=== PATIENT | male | born 1960 | race Caucasian/White ===

== ENCOUNTER 2021-01-09 11:38 | Emergency (ER) | payer OTHER, SELFPAY ==
[2021-01-09] VITALS (14 sets, daily range): BP systolic 94–174; BP diastolic 58–88; PULSE 44–83; RESP 18–23; TEMP 32.4–33; O2SAT 97–100; BMI 33.5
--- NOTE | ~2021-01-09 | CT_ITS ---
EXAMINATION: CT HEAD WITHOUT CONTRAST CLINICAL INFORMATION: Unresponsive after cardiac arrest COMPARISON: None. TECHNIQUE: Contiguous axial imaging was performed from the skull base to vertex without intravenous contrast. This CT examination was performed using dose optimization techniques as appropriate, variously including the following: * Automated exposure control * Adjustment of mA and/or kV according to patient size (this includes techniques or standardized protocols for targeted exams where dose is matched to indication/reason for exam; i.e. extremities or head) Use of iterative reconstruction technique DLP: 669 mGy-cm. FINDINGS: There is no evidence of acute intracranial hemorrhage or territorial infarction. No abnormal mass effect or midline shift is seen. Ruiz to white matter differentiation is well preserved. No extra-axial fluid collections are identified. No hydrocephalus. Proportional prominence of the ventricles and sulcal spaces is consistent with mild volume loss. Patchy periventricular and deep white matter hypoattenuation is consistent with mild small vessel ischemic changes. The osseous structures and soft tissues are normal. There is near complete opacification of the right maxillary sinus. Air-fluid level in the right sphenoid sinus. Moderate opacification of the right ethmoid air cells. The mastoid air cells are well aerated. CT/CT head/brain wo con IMPRESSION: No acute intracranial pathology. Mild volume loss with small vessel ischemic change. Paranasal sinus opacification.
--- NOTE | ~2021-01-09 | XR_ITS ---
EXAMINATION: XR CHEST CLINICAL INFORMATION: Status post intubation. COMPARISON: None TECHNIQUE: Frontal view of the chest was obtained. FINDINGS: Endotracheal tube with its tip approximately 0.6 cm proximal to the thomas and directed toward the right mainstem bronchus. Retraction of approximately 3 cm is recommended. Enterogastric tube with its tip in the region of the distal esophagus. The distal aspect of the tube is not well visualized. Right-sided central venous catheter with its tip at the level of the cavoatrial junction. Hypoinflation of the lungs. Left upper lobe/left perihilar airspace opacities. No pleural effusion or pneumothorax. XR/XR chest 1V IMPRESSION: 1. Endotracheal tube with its tip approximately 0.6 cm proximal to the thomas and directed toward the right mainstem bronchus. Retraction of approximately 3 cm is recommended. 2. Enterogastric tube with its tip appearing to be in the region of the distal esophagus and not well visualized. 3. Right-sided central venous catheter in appropriate position. 4. Left upper lobe/left perihilar airspace opacities. No pleural effusion or pneumothorax. This critical result was discussed with Dr. Chaparro at 12:49 PM on 01/09/2021 and it was ascertained that the content and urgency of the report was understood at the time of direct communication.
--- NOTE | ~2021-01-09 | XR_ITS ---
EXAMINATION: XR CHEST CLINICAL INFORMATION: Intubation and central line COMPARISON: 01/09/2021 TECHNIQUE: Frontal view of the chest was obtained. FINDINGS: The endotracheal tube now terminates approximately 1.5 cm above the thomas. This is retracted from prior. Enteric tube terminates over the lower esophagus. Right internal jugular central venous catheter terminates over the lower SVC. Cardiac leads overlie the chest. Lung volumes are low. There is minimal left perihilar opacity again noted. No pleural effusion or pneumothorax. The cardiomediastinal silhouette is unchanged. XR/XR chest 1V IMPRESSION: Endotracheal tube retracted from prior, now terminating 1.5 cm above the thomas. This is near the region of the clavicles and this measurement is likely partially due to positioning of the patient. This may be satisfactory positioning. Continued follow-up. Persistent left perihilar airspace opacity.
[2021-01-09 11:51] LABS: Glucose, Whole Blood 88 mg/dL (60-115)
--- NOTE | 2021-01-09 12:28 | ED_ITS ---
HPI - CPR General Chief Complaint: Cardiac Arrest/CPR Stated Complaint: code Time Seen by Provider: 01/09/21 12:28 Source: EMS Mode of arrival: EMS Limitations: other (unresponsiv) History of Present Illness HPI narrative: patient was with family, went to family room found unresponsive 1 hour later. CPR started, ACLS by EMS, patient received epi, achieved ROSC started on peripheral nor epi. LMA Jacob placed. Patient had runs of vfib with cardioversion complaint: found unresponsive Onset (ago): minute(s) Place: home Bystander CPR performed: Yes Number of shocks delivered: 2 Initial findings in the field: unresponsive, no respirations, no pulse and other rhythm (flat line) ROSC in the field: Yes Associated injuries: No Related Data Allergies Allergy/AdvReac Type Severity Reaction Status Date / Time No Known Allergies Allergy Verified 01/09/21 12:28 Review of Systems Review of Systems: Yes Unobtainable due to mental condition and Unobtainable d ue to mental status PMFSH Past Medical History Medical History Diabetes EtOH dependence HTN (hypertension) with goal to be determined Social History Social History Advance Directives: No Physical Exam Vital Signs: Vital Signs: Last Vital Signs Temp 90.3 F L 01/09/21 15:18 Pulse 64 01/09/21 15:18 Resp 22 H 01/09/21 15:18 BP 128/69 01/09/21 15:18 Pulse Ox 99 01/09/21 15:18 Body Mass Index 33.5 Const: Other: chronically ill appearing, jacob LMA Nutritional Appearance: average body habitus HENMT: Other: coffee grounds in mouth and airway Head: Yes normal to inspection Ears: external ears normal General nose exam: Normal external nose present Throat: Yes posterior oropharynx normal Eyes: Other: fixed and dilated Neck: Other: supple Neck: Yes normal visual inspection Chest: Chest palpation & inspection: normal inspection of the chest Resp: Other: rhonchi bilaterally Cardio: Jugular venous distension: no JVD Rate: regular rate Rhythm: regular rhythm Heart sounds: S1 normal heart sound present and S2 normal heart sound present GI: Inspection: Yes normal to inspection Palpation (GI): Soft to palpation Auscultation: normal bowel sounds : Other: normal penis and testicles Skin: Other: cyanotic extremities Neuro: Other: unresponsive to painful stimuli Extrem: General: Yes normal to inspection Psych: Appearance: grossly normal Course Course Course Narrative: Proper hand hygiene, cap, gown and sterile gloves place worn. Patient prepped and draped in sterile fashion, 1% lidocaine used for anesthesia, sterile US cover used, central line placed using US. Central line 16cm at the neck. Sutured in place Reevaluation(s) Reevaluation #1: Patient intubated with under direct visualization, 8.0 ETT used, 24 at the lips, good capnometery. Good O2 saturations, CXR shows tube in good position. Reevaluation #2: Nasogastric tube in place, coffee grounds removed Reevaluation #3: I spent 150 minutes of critical care, with interventions, assessments, speaking to consultants, and family. MDM - Cardiac Arrest/CPR MDM Narrative Medical decision making narrative: impression with the cardiac arrest, h ypothermia, WBC, elevated Lactic, infiltrates on CXR, renal failure, hyperkalemia Lab Data Result diagrams: 01/09/21 13:17 01/09/21 13:17 Labs: Lab Results 01/09/21 01/09/21 01/09/21 Range/Units 11:48 13:17 13:17 WBC 43.0 H* (4.8-10.8) X10*3/uL RBC 2.85 L (4.60-5.80) X10*6/uL Hgb 8.5 L (14.0-18.0) g/dl Hct 32.4 L (42-52) % MCV 113.7 H (80-98) fL MCH 29.8 (27.0-33.0) pg MCHC 26.2 L (31.0-36.0) g/dl RDW 15.9 (11.0-16.0) % Plt Count 257 (160-400) X10*3/uL MPV 11.8 (9.4-12.4) fL Immature Gran % (Auto) Cancelled Neut % (Auto) Cancelled Lymph % (Auto) Cancelled [place] % (Auto) Cancelled Eos % (Auto) Cancelled Baso % (Auto) Cancelled Lymph # (Auto) Cancelled [place] # (Auto) Cancelled Eos # (Auto) Cancelled Baso # (Auto) Cancelled Abs Immat Gran (auto) Cancelled Absolute Neuts (auto) Cancelled Absolute Nucleated RBC 0.310 H (0.0-0.012) X10*3/uL Nucleated RBC % (auto) 0.7 H (0.0-0.2) /100WBC Neutrophils % (Manual) 58 (45-73) % Band Neutrophils % 21 H (3-5) % Lymphocytes % (Manual) 3 L (20-40) % Atypical Lymphs % (Man) 1 (0-6) % Monocytes % (Manual) 5 (2-11) % Eosinophils % (Manual) 2 (0-4) % Metamyelocytes % 7 % Myelocytes % 1 % Promyelocytes % 2 % Abs Neuts (Manual) 34.0 H (2.2-7.9) X10*3/uL Lymphocytes # (Manual) 1.3 (0.6-4.8) X10*3/uL Atyp Lymphs # (Manual) 0.4 x10*3/uL Monocytes # (Manual) 2.2 H (0.0-1.2) X10*3/uL Eosinophils # (Manual) 0.9 H (0.0-0.8) X10*3/UL Metamyelocytes # 3.0 X10*3/uL Myelocytes # 0.4 X10*/uL Promyelocytes # 0.9 X10*3/uL Nucleated RBCs 1 H (0-0) /100WBC Toxic Granulation PRESENT Toxic Vacuolation PRESENT Platelet Estimate NORMAL (NORMAL) Plt Morphology Comment L RBC Morphology NOTED Polychromasia 1+ (0-2) /OIF Macrocytosis 2+ (15-30) /OIF Anton Cells 2+ (3-5) /OIF Acanthocytes (Spur) 1+ (0-2) /OIF Schistocytes 1+ (0-2) /OIF VBG pH (7.32-7.43) VBG pCO2 mmHg VBG pO2 mmHg VBG HCO3 (22-26) mmol/L VBG O2 Saturation % VBG Base Excess mmol/L Sodium 133 L (135-145) mmol/L Potassium 8.4 H* (3.3-5.1) mmol/L Chloride 95 L (96-108) mmol/L Carbon Dioxide < 5 L* (22-29) mmol/L Anion Gap 41 H (12-20) BUN 94 H* (9-16) mg/dL Creatinine 7.67 H* (0.5-1.4) mg/dL Estim Creat Clear Calc 12.0 Estimated GFR 7 POC Glucose 88 (60-115) mg/dL Random Glucose 54 L* (60-115) mg/dL Lactic Acid (0.5-2.0) mmol/L Calcium 8.1 L (8.4-10.2) mg/dL Total Bilirubin 7.7 H (0.0-1.0) mg/dL Direct Bilirubin 5.9 H (0.0-0.5) mg/dL AST 506 H (5-37) U/L ALT 250 H (0-40) U/L Alkaline Phosphatase 476 H (39-117) U/L Troponin I High Sens (<3.5-35.0) ng/L Total Protein 6.3 L (6.5-8.0) g/dL Albumin 2.2 L (3.5-5.0) g/dL Lipase (8-78) U/L Urine Opiates Screen (Not Detect) Ur Barbiturates Screen (Not Detect) Ur Phencyclidine Scrn (Not Detect) Ur Amphetamines Screen (Not Detect) U Benzodiazepines Scrn (Not Detect) Urine Cocaine Screen (Not Detect) U Marijuana (THC) Screen (Not Detect) Coronavirus (PCR) (Negative) Influenza Type A (PCR) (Negative) Influenza Type B (PCR) (Negative) RSV RNA Qual (PCR) (Negative) 01/09/21 01/09/21 01/09/21 Range/Units 13:17 13:17 13:17 WBC (4.8-10.8) X10*3/uL RBC (4.60-5.80) X10*6/uL Hgb (14.0-18.0) g/dl Hct (42-52) % MCV (80-98) fL MCH (27.0-33.0) pg MCHC (31.0-36.0) g/dl RDW (11.0-16.0) % Plt Count (160-400) X10*3/uL MPV (9.4-12.4) fL Immature Gran % (Auto) Neut % (Auto) Lymph % (Auto) [place] % (Auto) Eos % (Auto) Baso % (Auto) Lymph # (Auto) [place] # (Auto) Eos # (Auto) Baso # (Auto) Abs Immat Gran (auto) Absolute Neuts (auto) Absolute Nucleated RBC (0.0-0.012) X10*3/uL Nucleated RBC % (auto) (0.0-0.2) /100WBC Neutrophils % (Manual) (45-73) % Band Neutrophils % (3-5) % Lymphocytes % (Manual) (20-40) % Atypical Lymphs % (Man) (0-6) % Monocytes % (Manual) (2-11) % Eosinophils % (Manual) (0-4) % Metamyelocytes % % Myelocytes % % Promyelocytes % % Abs Neuts (Manual) (2.2-7.9) X10*3/uL Lymphocytes # (Manual) (0.6-4.8) X10*3/uL Atyp Lymphs # (Manual) x10*3/uL Monocytes # (Manual) (0.0-1.2) X10*3/uL Eosinophils # (Manual) (0.0-0.8) X10*3/UL Metamyelocytes # X10*3/uL Myelocytes # X10*/uL Promyelocytes # X10*3/uL Nucleated RBCs (0-0) /100WBC Toxic Granulation Toxic Vacuolation Platelet Estimate (NORMAL) Plt Morphology Comment RBC Morphology Polychromasia /OIF Macrocytosis /OIF Anton Cells /OIF Acanthocytes (Spur) /OIF Schistocytes /OIF VBG pH (7.32-7.43) VBG pCO2 mmHg VBG pO2 mmHg VBG HCO3 (22-26) mmol/L VBG O2 Saturation % VBG Base Excess mmol/L Sodium (135-145) mmol/L Potassium (3.3-5.1) mmol/L Chloride (96-108) mmol/L Carbon Dioxide (22-29) mmol/L Anion Gap (12-20) BUN (9-16) mg/dL Creatinine (0.5-1.4) mg/dL Estim Creat Clear Calc Estimated GFR POC Glucose (60-115) mg/dL Random Glucose (60-115) mg/dL Lactic Acid (0.5-2.0) mmol/L Calcium (8.4-10.2) mg/dL Total Bilirubin (0.0-1.0) mg/dL Direct Bilirubin (0.0-0.5) mg/dL AST (5-37) U/L ALT (0-40) U/L Alkaline Phosphatase (39-117) U/L Troponin I High Sens 7.0 (<3.5-35.0) ng/L Total Protein (6.5-8.0) g/dL Albumin (3.5-5.0) g/dL Lipase 315 H (8-78) U/L Urine Opiates Screen (Not Detect) Ur Barbiturates Screen (Not Detect) Ur Phencyclidine Scrn (Not Detect) Ur Amphetamines Screen (Not Detect) U Benzodiazepines Scrn (Not Detect) Urine Cocaine Screen (Not Detect) U Marijuana (THC) Screen (Not Detect) Coronavirus (PCR) NEGATIVE (Negative) Influenza Type A (PCR) NEGATIVE (Negative) Influenza Type B (PCR) NEGATIVE (Negative) RSV RNA Qual (PCR) NEGATIVE (Negative) 01/09/21 01/09/21 01/09/21 Range/Units 13:17 13:17 13:25 WBC (4.8-10.8) X10*3/uL RBC (4.60-5.80) X10*6/uL Hgb (14.0-18.0) g/dl Hct (42-52) % MCV (80-98) fL MCH (27.0-33.0) pg MCHC (31.0-36.0) g/dl RDW (11.0-16.0) % Plt Count (160-400) X10*3/uL MPV (9.4-12.4) fL Immature Gran % (Auto) Neut % (Auto) Lymph % (Auto) [place] % (Auto) Eos % (Auto) Baso % (Auto) Lymph # (Auto) [place] # (Auto) Eos # (Auto) Baso # (Auto) Abs Immat Gran (auto) Absolute Neuts (auto) Absolute Nucleated RBC (0.0-0.012) X10*3/uL Nucleated RBC % (auto) (0.0-0.2) /100WBC Neutrophils % (Manual) (45-73) % Band Neutrophils % (3-5) % Lymphocytes % (Manual) (20-40) % Atypical Lymphs % (Man) (0-6) % Monocytes % (Manual) (2-11) % Eosinophils % (Manual) (0-4) % Metamyelocytes % % Myelocytes % % Promyelocytes % % Abs Neuts (Manual) (2.2-7.9) X10*3/uL Lymphocytes # (Manual) (0.6-4.8) X10*3/uL Atyp Lymphs # (Manual) x10*3/uL Monocytes # (Manual) (0.0-1.2) X10*3/uL Eosinophils # (Manual) (0.0-0.8) X10*3/UL Metamyelocytes # X10*3/uL Myelocytes # X10*/uL Promyelocytes # X10*3/uL Nucleated RBCs (0-0) /100WBC Toxic Granulation Toxic Vacuolation Platelet Estimate (NORMAL) Plt Morphology Comment RBC Morphology Polychromasia /OIF Macrocytosis /OIF [place] Cells /OIF Acanthocytes (Spur) /OIF Schistocytes /OIF VBG pH 6.53 L* (7.32-7.43) VBG pCO2 24 mmHg VBG pO2 169 mmHg VBG HCO3 2 L (22-26) mmol/L VBG O2 Saturation 93.0 % VBG Base Excess -35.7 mmol/L Sodium (135-145) mmol/L Potassium (3.3-5.1) mmol/L Chloride (96-108) mmol/L Carbon Dioxide (22-29) mmol/L Anion Gap (12-20) BUN (9-16) mg/dL Creatinine (0.5-1.4) mg/dL Estim Creat Clear Calc Estimated GFR POC Glucose (60-115) mg/dL Random Glucose (60-115) mg/dL Lactic Acid 26.3 H* (0.5-2.0) mmol/L Calcium (8.4-10.2) mg/dL Total Bilirubin (0.0-1.0) mg/dL Direct Bilirubin (0.0-0.5) mg/dL AST (5-37) U/L ALT (0-40) U/L Alkaline Phosphatase (39-117) U/L Troponin I High Sens (<3.5-35.0) ng/L Total Protein (6.5-8.0) g/dL Albumin (3.5-5.0) g/dL Lipase (8-78) U/L Urine Opiates Screen Not Detected (Not Detect) Ur Barbiturates Screen Not Detected (Not Detect) Ur Phencyclidine Scrn Not Detected (Not Detect) Ur Amphetamines Screen Not Detected (Not Detect) U Benzodiazepines Scrn Not Detected (Not Detect) Urine Cocaine Screen Not Detected (Not Detect) U Marijuana (THC) Screen Not Detected (Not Detect) Coronavirus (PCR) (Negative) Influenza Type A (PCR) (Negative) Influenza Type B (PCR) (Negative) RSV RNA Qual (PCR) (Negative) 01/09/21 Range/Units 14:56 WBC (4.8-10.8) X10*3/uL RBC (4.60-5.80) X10*6/uL Hgb (14.0-18.0) g/dl Hct (42-52) % MCV (80-98) fL MCH (27.0-33.0) pg MCHC (31.0-36.0) g/dl RDW (11.0-16.0) % Plt Count (160-400) X10*3/uL MPV (9.4-12.4) fL Immature Gran % (Auto) Neut % (Auto) Lymph % (Auto) [place] % (Auto) Eos % (Auto) Baso % (Auto) Lymph # (Auto) [place] # (Auto) Eos # (Auto) Baso # (Auto) Abs Immat Gran (auto) Absolute Neuts (auto) Absolute Nucleated RBC (0.0-0.012) X10*3/uL Nucleated RBC % (auto) (0.0-0.2) /100WBC Neutrophils % (Manual) (45-73) % Band Neutrophils % (3-5) % Lymphocytes % (Manual) (20-40) % Atypical Lymphs % (Man) (0-6) % Monocytes % (Manual) (2-11) % Eosinophils % (Manual) (0-4) % Metamyelocytes % % Myelocytes % % Promyelocytes % % Abs Neuts (Manual) (2.2-7.9) X10*3/uL Lymphocytes # (Manual) (0.6-4.8) X10*3/uL Atyp Lymphs # (Manual) x10*3/uL Monocytes # (Manual) (0.0-1.2) X10*3/uL Eosinophils # (Manual) (0.0-0.8) X10*3/UL Metamyelocytes # X10*3/uL Myelocytes # X10*/uL Promyelocytes # X10*3/uL Nucleated RBCs (0-0) /100WBC Toxic Granulation Toxic Vacuolation Platelet Estimate (NORMAL) Plt Morphology Comment RBC Morphology Polychromasia /OIF Macrocytosis /OIF Anton Cells /OIF Acanthocytes (Spur) /OIF Schistocytes /OIF VBG pH (7.32-7.43) VBG pCO2 mmHg VBG pO2 mmHg VBG HCO3 (22-26) mmol/L VBG O2 Saturation % VBG Base Excess mmol/L Sodium (135-145) mmol/L Potassium (3.3-5.1) mmol/L Chloride (96-108) mmol/L Carbon Dioxide (22-29) mmol/L Anion Gap (12-20) BUN (9-16) mg/dL Creatinine (0.5-1.4) mg/dL Estim Creat Clear Calc Estimated GFR POC Glucose 115 (60-115) mg/dL Random Glucose (60-115) mg/dL Lactic Acid (0.5-2.0) mmol/L Calcium (8.4-10.2) mg/dL Total Bilirubin (0.0-1.0) mg/dL Direct Bilirubin (0.0-0.5) mg/dL AST (5-37) U/L ALT (0-40) U/L Alkaline Phosphatase (39-117) U/L Troponin I High Sens (<3.5-35.0) ng/L Total Protein (6.5-8.0) g/dL Albumin (3.5-5.0) g/dL Lipase (8-78) U/L Urine Opiates Screen (Not Detect) Ur Barbiturates Screen (Not Detect) Ur Phencyclidine Scrn (Not Detect) Ur Amphetamines Screen (Not Detect) U Benzodiazepines Scrn (Not Detect) Urine Cocaine Screen (Not Detect) U Marijuana (THC) Screen (Not Detect) Coronavirus (PCR) (Negative) Influenza Type A (PCR) (Negative) Influenza Type B (PCR) (Negative) RSV RNA Qual (PCR) (Negative) Imaging Data Chest x-ray: Radiologist's impression: central line, and NGT in good position, ETT too deep Critical Care Time Critical Care Time Attestation: 150 minutes of critical care time Discharge Plan Discharge Clinical Impression: Cardiac arrest Acute respiratory failure Qualifiers: Respiratory failure complication: unspecified whether with hypoxia or hyper capnia Qualified Code(s): J96.00 - Acute respiratory failure, unspecified whe ther with hypoxia or hypercapnia Sepsis Qualifiers: Sepsis type: sepsis due to unspecified organism Sepsis acute organ dysfunction status: with acute organ dysfunction Severe sepsis acute organ dysfunction type: acute renal failure Acute renal failure type: unspecified Severe sepsis shock status: without septic shock Qualified Code(s): A41.9 - Sepsis, unspecified organism Pneumonia Qualifiers: Pneumonia type: due to unspecified organism Laterality: bilateral Lung location: upper lobe of lung Qualified Code(s): J18.9 - Pneumonia, unspecified organism Renal failure Qualifiers: Renal failure chronicity: acute Acute renal failure type: unspecified Qualified Code(s): N17.9 - Acute kidney failure, unspecified Patient Disposition: [facility] Transfer Details: intubated, sepsis, renal failure
--- NOTE | 2021-01-09 12:28 | ECG_ITS ---
Test Reason : 911 Blood Pressure : / mmHG Vent. Rate : 069 BPM Atrial Rate : 052 BPM P-R Int : 000 ms QRS Dur : 158 ms QT Int : 480 ms P-R-T Axes : 000 -36 093 degrees QTc Int : 514 ms Atrial fibrillation with premature ventricular or aberrantly conducted complexes Left axis deviation Left bundle branch block Abnormal ECG No previous ECGs available Referred By: Lang Chaparro Electronically Signed By:NORA CASEY MD
--- NOTE | 2021-01-09 13:05 | PC.NURSE ---
genoveva conner applied for core temp 91.4
[2021-01-09 13:29] LABS: Hematocrit 32.4 % (42-52); Hemoglobin 8.5 g/dl (14.0-18.0); Mean Corpuscular HGB Conc 26.2 g/dl (31.0-36.0); Mean Corpuscular Hemoglobin 29.8 pg (27.0-33.0); Mean Platelet Volume 11.8 fL (9.4-12.4); NRBC Pct Auto 0.7 /100WBC (0.0-0.2); Platelet Count 257 X10*3/uL (160-400); Red Blood Count 2.85 X10*6/uL (4.60-5.80); Red Cell Distribution Width 15.9 % (11.0-16.0)
[2021-01-09 13:31] LABS: Mean Corpuscular Volume 113.7 fL (80-98); WBC ABN SCTR FOR CBC 1
[2021-01-09 13:38] LABS: VBG Base Excess -35.7 mmol/L; VBG HCO3 2 mmol/L (22-26); VBG pCO2 24 mmHg; VBG pH 6.53 (7.32-7.43); VBG pO2 169 mmHg
[2021-01-09 13:39] LABS: Venous Blood Gas Refer to POC result
[2021-01-09] MEDS: Atropine Sulfate 1 MG/10 ML SYRINGE IVPUSH (13:45)
--- NOTE | 2021-01-09 13:51 | PC.NURSE ---
HR drops to 40's with irreg rythm during ct. md aware and verbal order for atropine one amp. still remains sedate, only palpable pulse is femoral which has been the case since intubation. family was at bedside p/t ct and stating that patient is daily drinker as well as may have had drug use. was living with sister where drugs are accessable. still very little urine output.
[2021-01-09 13:53] LABS: Atypical Lymph Absolute Manual 0.4 x10*3/uL; Atypical Lymphs Percent Manual 1 % (0-6); Band Neutrophils Percent 21 % (3-5); Eosinophils Absolute Manual 0.9 X10*3/UL (0.0-0.8); Eosinophils Percent Manual 2 % (0-4); Lymphocytes Absolute Manual 1.3 X10*3/uL (0.6-4.8); Lymphocytes Percent Manual 3 % (20-40); Metamyelocytes Percent 7 %; Monocytes Absolute Manual 2.2 X10*3/uL (0.0-1.2); Monocytes Percent Manual 5 % (2-11); Myelocytes Absolute 0.4 X10*/uL; Myelocytes Percent 1 %; Neutrophils Percent Manual 58 % (45-73); Nucleated Red Blood Cells 1 /100WBC (0-0); Platelet Estimate NORMAL (NORMAL); Promyelocytes Absolute 0.9 X10*3/uL; Promyelocytes Percent 2 %
[2021-01-09] MEDS: 0.9 % Sodium Chloride 3,000 ML 3000 ML IVCONT (13:53)
[2021-01-09 13:54] LABS: Macrocytosis 2+ (15-30) /OIF; Platelet Morphology Comment L; RBC Morphology NOTED; Toxic Granulation PRESENT; Toxic Vacuolation PRESENT
[2021-01-09 14:00] LABS: Acanthocytes 1+ (0-2) /OIF; Burr Cells 2+ (3-5) /OIF; Polychromasia 1+ (0-2) /OIF; Schistocytes 1+ (0-2) /OIF
[2021-01-09] MEDS: cefTRIAXone sodium 2 GM in 0.9 % Sodium Chloride 50 ML IV (14:00)
[2021-01-09 14:07] LABS: Amphetamine Screen Urine Not Detected (Not Detect); Barbiturates, Urine Not Detected (Not Detect); Benzodiazepines Screen Urine Not Detected (Not Detect); Cannabinoid Screen Urine Not Detected (Not Detect); Cocaine Screen Urine Not Detected (Not Detect); Opiate Screen Urine Not Detected (Not Detect); Phencyclidine Screen Urine Not Detected (Not Detect)
[2021-01-09 14:09] LABS: Influenza A PCR NEGATIVE (Negative); Influenza B PCR NEGATIVE (Negative); Lipase 315 U/L (8-78); Resp Syncy Virus RNA Qual PCR NEGATIVE (Negative); SARS COV2 PCR INHOUSE NEGATIVE (Negative)
[2021-01-09 14:15] LABS: Lactic Acid 26.3 mmol/L (0.5-2.0)
[2021-01-09 14:17] LABS: Potassium 8.4 mmol/L (3.3-5.1)
[2021-01-09 14:18] LABS: Alanine Aminotransferase 250 U/L (0-40); Albumin Level 2.2 g/dL (3.5-5.0); Alkaline Phosphatase 476 U/L (39-117); Anion Gap 41 (12-20); Aspartate Amino Transferase 506 U/L (5-37); Bilirubin Direct 5.9 mg/dL (0.0-0.5); Bilirubin Total 7.7 mg/dL (0.0-1.0); Blood Urea Nitrogen 94 mg/dL (9-16); Calcium 8.1 mg/dL (8.4-10.2); Carbon Dioxide < 5 mmol/L (22-29); Chloride 95 mmol/L (96-108); Estimated Glomerular Filt Rate 7; Glucose Random 54 mg/dL (60-115); Sodium 133 mmol/L (135-145); Total Protein 6.3 g/dL (6.5-8.0)
[2021-01-09] MEDS: Calcium Chloride 1 GM/10 ML SYRINGE IVPUSH (14:23)
[2021-01-09] MEDS: Sodium Bicarbonate 8.4% 50 MEQ/50 ML VIAL IVPUSH (14:24)
[2021-01-09] MEDS: Insulin Regular, Human 100 UNIT/ML 3 ML VIAL 10 UNIT IVPUSH (14:28)
[2021-01-09] MEDS: Azithromycin 500 MG in 0.9 % Sodium Chloride 250 ML 125 MG IV (14:32)
[2021-01-09] MEDS: Sodium Polystyrene Sulfon/Sorb 15 GM/60 ML ORAL.SUSP 30 GM NG-TUBE (14:33)
--- NOTE | 2021-01-09 14:44 | PC.NURSE ---
pt continues to be completely sedate, no need for chemical sedation. now was wide but regular rhythm on monitor. norepi running at 0.5mvg/kg/min, abx and fluids infusing. no urine output since initial sml amount sent to lab for u/a. plan is to transfer to [facility]. physician is yet to give doc to doc
--- NOTE | 2021-01-09 14:46 | PC.NURSE ---
@ 4901 RETURN CALL FROM LINSEY FROM [facility] PT TX LINE ASKING TO SPEAK WITH DR TERRI MURRAY TAKES OVER CALL RIGHT AWAY
--- NOTE | 2021-01-09 14:49 | PC.NURSE ---
late entry. at arrival pt had no periferal pulses but wide irreg rhythm in 60's. ultrasound at bedside confirmed cardiac activity. femoral pulses palpable. intubation and central line insertion uncomplicated though tarry GI contents noted initially then scan amount in OG tube. md though that patient responded to central line insertion and og insertion but has not needed any sedation throughout time in ed. family at bedside states that patient is daily drinker. poor hygiene and signs of cronic poor peripheral perfusion as well as wounds on left foot at arrival. pt cool to touch. difficult to obtain sao2 untill after intubation and forhead prob used. blanket warmer isn't resulting in any increased core temp since it's use. family is aware of pt condition. MD continues to try to establish transfer to [facility].
--- NOTE | 2021-01-09 14:58 | ECG_ITS ---
Test Reason : hyperkalemia Blood Pressure : / mmHG Vent. Rate : 096 BPM Atrial Rate : 069 BPM P-R Int : 164 ms QRS Dur : 188 ms QT Int : 524 ms P-R-T Axes : 025 -45 056 degrees QTc Int : 661 ms Atrial fibrillation Right atrial enlargement Left axis deviation Left bundle branch block Abnormal ECG When compared to the previous EKG of QRS duration has increased significantly c/w hyperkalemia Referred By: Lang Chaparro Electronically Signed By:NORA CASEY MD
[2021-01-09] MEDS: Sodium Bicarbonate 8.4% 150 MEQ in Dextrose 5 % 850 ML 50 MEQ IV (15:06)
[2021-01-09 15:07] LABS: Glucose, Whole Blood 115 mg/dL (60-115)
[2021-01-09 15:23] LABS: Reflex Lactate? Lactic Acid Added
--- NOTE | 2021-01-09 15:55 | PC.NURSE ---
rn to rn malathi tejeda at [facility].
--- NOTE | 2021-01-09 16:07 | PC.NURSE ---
bedside report with action ems.
--- NOTE | 2021-01-09 17:51 | MHC.CM.ED ---
JAMIE asked to meet with son and ex- by Roshan P.A. Pt has and family have chosen not to see pt again. Son Buck Chicas ([phone]) will check in with other family to see if they have a recommendation for home. Buck will either call CM emiliano or tomorrow with choice of facility. Buck aware that his father will go to our [facility] and that the home with pick him up. Reassured Buck that director of clinical education will be able to help him and direct him in how to proceed from here. Business card given to son. Condolences offered. Alessandra SHRESTHA aware of conversation and that family will call [facility] or tomorrow with home choice.
--- NOTE | 2021-01-09 18:09 | PC.NURSE ---
declined by [employer] ilia. emir is staff. ref # [id number]
--- NOTE | 2021-01-09 20:45 | PC.NURSE ---
1705 late entry: pt's hr continued to decrease into 50's with declining co2 as low as 14. even after atropine IVP and increased levophed pt's pulse continues to decrease and cos got as low as 8. pulses that were thready became absent. skin mottled more and more in the last 2 hrs in ed. compressions started at 1705. see code paperwork. Roshan RN was involved in code then doc anwer. pt transfered back to ed stretched after compressions initiated.
== END 2021-01-09 17:05 | disposition expired ==
PROVIDERS: Emergency Provider Emergency Medicine
DX: I46.9 Cardiac arrest, cause unspecified (principal); A41.9 Sepsis, unspecified organism; J18.9 Pneumonia, unspecified organism; J96.00 Acute respiratory failure, unspecified whether with hypoxia or hypercapnia; N17.9 Acute kidney failure, unspecified; E11.9 Type 2 diabetes mellitus without complications; I10 Essential (primary) hypertension; F10.20 Alcohol dependence, uncomplicated; E87.5 Hyperkalemia; R65.20 Severe sepsis without septic shock; Z20.822 Contact with and (suspected) exposure to COVID-19
CPT/HCPCS: 0241U; 31500; 36415; 36573; 43762; 70450; 71045; 80048; 80076; 80307; 82947; 83605; 83690; 84484; 85007; 85027; 85060; 87040; 87077; 87147; 87186; 87205; 93005; 94002; 94003; 96361; 96365; 96366; 96367; 96368; 96374; 96375; 99282; 99283; 99291; J0171; J0456; J0461; J0696